=== PATIENT | female | born 1990 | race Caucasian/White ===

== ENCOUNTER → 2022-11-26 16:22 | Outpatient (CLI) | payer OTHER, SELFPAY ==
--- NOTE | 2022-11-26 16:24 | DI.US.S_ITS ---
PROCEDURE: US OB >= 14 WEEKS FETUS INDICATIONS: 20 WEEK ANATOMY SCAN OUTSIDE/PRIOR DATING DATA: Last menstrual period (LMP): 07/06/22. LMP-based estimated date of delivery (IVIS): 04/12/23. First dating scan (date and location): Unavailable. Estimated date of delivery (IVIS) from first dating scan: Unavailable. The calculations are made using the clinical IVIS of 04/12/23. TECHNIQUE: Real-time scanning was performed of the fetus, with image documentation and biometric measurements. Endovaginal scanning: Not performed COMPARISON: None. FINDINGS: General: A single living intrauterine gestation is present. Presentation: Vertex. Placenta: Placental position is anterior , without previa. Amniotic fluid index: 16.0 cm, normal range is 5-24 cm. Single deepest vertical pocket is 5.2 cm. heart rate: 155 beats per minute. Maternal cervical canal: Closed and 4.2 cm long. Normal lower limit is 2.5 cm. biometrics: Biparietal diameter: 5.2 cm, 21 weeks 5 days Head circumference: 20.0 cm, 22 weeks 0 days Abdominal circumference: 16.4 cm, 21 weeks 3 days Femur length: 3.4 cm, 20 weeks 5 days Clinically estimated gestational age: 20 weeks 3 days Composite gestational age from present scan: 21 weeks 3 days Estimated weight and percentile: 408 g, 86th percentile Anatomic survey: Neuro: Ventricles are non-dilated at less than 10 mm. Cisterna magna is normal at 3-11 mm. Cerebellum is normal in size and morphology. Nuchal skin fold: Normal at less than 6 mm between 14-21 weeks gestational age. Face: Nose and lips, facial profile are normal. Spine: No evidence for spina bifida. Heart: 4-chambered heart is present, with normal ventricular outflow tracts. Diaphragm: Diaphragm is intact. Stomach: Left-sided stomach is present. Kidneys: Borderline right renal pelviectasis. Right renal pelvis measures 5 mm. The left measures 4 mm. Cord: 3-vessel cord has orthotopic insertion. Bladder: Normal in size. Extremities: All 4 extremities identified. IMPRESSION: 1. Single living intrauterine with gestational age by today's measurements 1 week ahead of the clinically assigned gestational age. 2. Borderline right renal pelviectasis. Consider follow-up in early 3rd trimester. 3. Otherwise normal anatomy. 4. Closed cervix and normal amniotic fluid volume. 5. Anterior placenta. We strive to produce accurate, complete, and clear reports of imaging services. To assist us in improving patient care, this report was composed using standard report templates and voice recognition software. Therefore, it may contain abnormal punctuation, insertions and/or omissions. Occasional wrong-word or sound-alike substitutions may occur. Though we review the report and make efforts to correct it, we do recommend that the report be read carefully in proper context to recognize any text inaccuracies. Dictated by: Blank Ordoñez M.D. on 11/26/2022 at 21:43 Approved by: Blank Ordoñez M.D. on 11/26/2022 at 21:51
== END ==
PROVIDERS: Referring Provider Nurse Practitioner Obstetrics & Gynecology; Visit Provider Nurse Practitioner Obstetrics & Gynecology
DX: Z34.02 Encounter for supervision of normal first pregnancy, second trimester (principal); Z3A.20 20 weeks gestation of pregnancy
CPT/HCPCS: 76811

== ENCOUNTER → 2023-02-11 15:15 | Outpatient (CLI) | payer OTHER, SELFPAY ==
--- NOTE | 2023-02-11 | DI.US.S_ITS ---
PROCEDURE: US OB FOLLOW UP INDICATIONS: FOLLOW UP FROM 20WK ANATOMY SCAN OUTSIDE/PRIOR DATING DATA: Last menstrual period (LMP): 07/06/2022. LMP-based estimated date of delivery (IVIS): 04/12/2023. The calculations are made using the clinical IVIS of 04/12/2023 TECHNIQUE: Real-time scanning was performed of the fetus, with image documentation. Endovaginal scanning: Not performed COMPARISON: None. FINDINGS: A single living intrauterine gestation is present. Presentation: Vertex. Placenta: Placental position is anterior, without previa. Amniotic fluid index: 10.8 cm, normal range is 5-24 cm. Single deepest vertical pocket is 4.3 cm. heart rate: 153 beats per minute. Maternal cervical canal: 2.8 cm long. Normal lower limit is 2.5 cm. Clinically estimated gestational age: 31 weeks 3 days Right renal pelvis is dilated, measuring 9 mm. IMPRESSION: Single living intrauterine at 31 weeks 3 days, IVIS of 04/12/2023. Right renal pelvis is dilated, measuring 9 mm. An obstructive etiology is not excluded. Dictated by: Suleman Pastor M.D. on 02/11/2023 at 16:53 Approved by: Suleman Pastor M.D. on 02/11/2023 at 16:54
== END ==
PROVIDERS: Referring Provider Advanced Practice Midwife; Visit Provider Advanced Practice Midwife
DX: O35.8XX0 Maternal care for other (suspected) fetal abnormality and damage, not applicable or unspecified (principal); Z3A.31 31 weeks gestation of pregnancy
CPT/HCPCS: 76816

== ENCOUNTER 2023-04-14 12:48 | Inpatient (IN) | payer OTHER, BC, SELFPAY ==
[2023-04-14] MEDS: LACTATED RINGERS 1,000 ML 100 ML IV (13:45)
--- NOTE | 2023-04-14 14:19 | P.HPOB_ITS ---
OB HPI Date/Time Date of admission: 04/14/23 Date Patient Seen: 04/14/23 Time Patient Seen: 13:30 History of Present Condition Chief complaint: Augmentation r/to PROM : 1 Para: 0 Estimated Date of Delivery: 04/12/23 Estimated Gestational Age (weeks): 40w2d Narrative: Lyn Jerez is a 32 year old female, @ 40 weeks 2 days based on sure LMP concordant with 6w4d US presenting for augmentation of labor related to PROM, clear fluid, 04/13/23 @ 2240. Has continued to leak clear fluid since ROM and has been wearing a depends. movement normal. Denies contractions, vaginal bleeding, or s/sx of infection. Interested in low-intervention vaginal . FOB at bedside providing support. Uncomplicated care followed by CNMs. notable for: anemia (taking ferrous sulfate PO) Indications Other reason(s) for admission: Augmentation for PROM x 15hr History of Present care: good care, initiated at week # (6w4d), number of visits and pounds weight gain (43) Dating criteria: LMP confirmed by 1st trimester US Ultrasounds: abnormal US findings and other (normal 3rd trimester US) Abnormal ultrasound findings: 20w2d US showing borderline right renal pelviectasis with otherwise normal anatomy. Repeat 3rd trimester US showed resolved renal physiology. Obstetrical complications: other (anemia) Medical complications: none Preadmission Labs Blood type: B (+) positive -: Antibody screen: negative, GBS status: negative, HBsAG: negative, HIV: negative and RPR/VDLR: negative -: Chlamydia screen: not detected and Gonorrhea screen: not detected -: Rubella: immune and Varicella: immune HCT: 31.4 HCAB: negative PAP: Normal Cell-free DNA: negative Urine: normal 1 hr GTT: 85 Prior (ies) History: none Evaluation Evaluation Baseline heart rate: 145 Variability: Moderate (11-25) monitor accelerations: Present Monitor Decelerations: Absent Contraction Frequency (minutes): 0 Status: Category l Comments: clear SROM on 04/13 @ 2240. Continuous leaking of fluid since. SVE deferred due to PROM [facility] Medical History (Updated 04/14/23 @ 17:44 by Jesika Bonilla CNM, [employer]) Migraines Fep-wlkxea-qujjg-rubella (10/21/03) Surgical History (Updated 04/14/23 @ 17:06 by Jesika Bonilla CNM, ODIN) H/O foot surgery Family History (Updated 04/14/23 @ 17:12 by Jesika Bonilla CNM, ODIN) Other Cancer Social History (Updated 04/14/23 @ 17:10 by Jesika Bonilla CNM, ODIN) marital status: number of children: 0 household members: spouse lives independently: Yes caregiver/support person: No housing: house pets and animals: Yes education level: college occupational status: employed do you feel safe at home: Yes Smoking Status: Never smoker well-balanced diet: daily or most days Meds Home Medications and Allergies Home Medications Medication Instructions Recorded Confirmed Type ferrous sulfate 325 mg (65 mg 325 mg PO BID 04/14/23 04/14/23 History iron) tablet prenat.vits,torsten,oep-ckaa-oxsxs tab 04/14/23 History Allergies Allergy/AdvReac Type Severity Reaction Status Date / Time Latex, Natural Rubber AdvReac Mild Irritable Verified 04/14/23 16:05 Review of Systems Review of Systems ROS: Yes All systems reviewed with the patient and are negative except as otherwise documented OB Exam Vital signs Blood Pressure: 116/74 Pulse Rate: 75 Temperature: 36.4 F Resp Effort & Inspection: normal respiratory effort and able to speak in complete sentences Auscultation: clear to auscultation bilaterally Cardio Rate: regular rate Rhythm: regular rhythm Presentation: vertex (LOT by bedside ultrasound) Objective Labs 04/14/23 13:45 Assessment and Plan Assessment and Plan Assessment and Plan narrative: A: 32yo @ 40w2d Term Nullipara Not in labor PROM x 15hr GBS negative: Antibiotic prophylaxis not indicated Mild anemia FHR Cat 1 Rh positive P: Admit with routine labs/orders Reviewed options for augmentation of labor. After discussion, initiate pitocin augmentation per protocol Continuous monitoring while on pitocin. Exam not performed due to PROM Discussed careful AMTSL r/to anemia of . Provide labor support as desired. Reassess in 4-6hr or sooner prn.
[2023-04-14 14:38] LABS: Add Manual Diff / Slide Review NO; Basophils Absolute Auto 0 /uL (0-100); Basophils Percent Auto 0.2 % (0-2); Eosinophils Absolute Auto 0 /uL (0-450); Eosinophils Percent Auto 0.2 % (2-4); Hematocrit 29.1 % (36-46); Hemoglobin 9.8 g/dL (12.0-16.0); Lymphocytes Absolute Auto 1600 /uL (1100-4500); Lymphocytes Percent Auto 13.3 % (25-40); Mean Corpuscular HGB Conc 33.6 % (30-36); Mean Corpuscular Hemoglobin 28.9 PG (26-34); Mean Corpuscular Volume 85.9 fL (80-100); Monocytes Absolute Auto 600 /uL (0-900); Monocytes Percent Auto 5.2 % (3-14); Neutrophils Absolute Auto 9500 /uL (1500-7000); Neutrophils Percent Auto 81.1 % (50-75); Platelet Count 266 X10^3/uL (150-400); Red Blood Cell Count 3.39 X10^6/uL (4.0-5.2); Red Cell Distribution Width 15.4 % (11.6-14.8); White Blood Cell Count 11.8 X10^3/uL (4.5-11.0)
[2023-04-14] MEDS: OXYTOCIN PREMIX 30 UNIT/500 ML PLAST..BAG IV (14:45)
[2023-04-14 16:20] VITALS: BP 116/74; PULSE 75; TEMP 2.4; TEMP 36.4
--- NOTE | 2023-04-14 17:23 | PM.OBPNLAB ---
Date/Time Date Patient Seen: 04/14/23 Time Patient Seen: 17:20 Pain Control Pain control: tolerating well Comments: Lyn is on a yoga ball swaying and watching tv with her partner by her side. Feels mild contractions and rate it 3/10 pain. Able to talk and laugh through contractions. VS: BP- 120/70 mmHg HR- 67 bpm T- 36.7c temporal Pelvic Exam Amniotic membrane status: Ruptured (x19hr) Comments: Deferred/ not indicated Contractions Contractions on admission: none Monitor mode: External Pitocin rate (mU/min): 3 Contraction frequency (min): 3 (-4) Contraction duration (min): 1 Contraction pattern: Regular Contraction intensity: Mild Status status: Category l Heart Rate Baseline: 135 Monitor Accelerations: Present Monitor Decelerations: Absent Monitor Variability: Moderate Assessment and Plan Assessment: other (Augmentation ongoing) Plan: continuous present management Comments: A: Term nullip Early labor SROM x 19hr without s/sx of infection FHR Cat 1 P: Continue pitocin titration per protocol Continuous monitoring Provide labor support as needed Reassess in 4-6hr or sooner prn
--- NOTE | 2023-04-14 22:46 | P.PNOB_ITS ---
Date/Time Date Patient Seen: 04/14/23 Time Patient Seen: 22:15 Pain Control Pain control: tolerating well Comments: Lyn is breathing and concentrating through moderate contractions every 3-4 minutes. Describes contractions as 'like heavy period'. Is considering trying nitrous oxide for some pain relief soon. Ate dinner earlier and now has water by bedside. Had mild headache that started right before she ate dinner and has gone away s nitesh eating. Denies any current MCDONALD, visual changes, RUQ pain. Continues to have clear fluid leaking. Laying in bed on her R side with FOB by her side providing support. Pelvic Exam Amniotic membrane status: Ruptured (x23.5hr) Comments: Deferred VS: -BP 114/76 mmHg -HR 65 bpm -T 6.2c temporal Contractions Monitor mode: External Pitocin rate (mU/min): 6 Contraction frequency (min): 3 (-4) Contraction duration (min): 1 Contraction pattern: Regular Contraction intensity: Moderate Status status: Category ll Heart Rate Baseline: 135 Monitor Accelerations: Present Monitor Decelerations: Late Monitor Variability: Moderate Assessment and Plan Assessment: other (augmentation ongoing) Plan: continuous present management Comments: A: 32yo, @ 40w2d Term Nullip Early labor SROM x 23.5hr, no s/sx of infection FHR Cat 2 reassuring P: Counseled on nitrous oxide. Offered non-pharmacological options for pain relief/labor support Advised to try to get rest in-between contractions Advised to let CNM or nurses know she she has any headaches again. Continue titrating pitocin per protocol Continuous monitoring Reassess in 4hr or sooner, prn
--- NOTE | 2023-04-15 00:39 | PM.OBPNLAB ---
Date/Time Date Patient Seen: 04/15/23 Time Patient Seen: 00:39 Pain Control Pain control: other Comments: Lyn is in bed using nitrous oxide for pain management. Contractions are every 3 minutes and are have slightly increased in intensity. Is interested in a cervical exam. VS: BP- 113/64 HR- 66 T- 36.2c temporal Pelvic Exam Dilation (cm): 2 Effacement (%): 90 station: -1 Amniotic membrane status: Ruptured (x25hr) Comments: soft, mid-posterior. Contractions Monitor mode: External Pitocin rate (mU/min): 7 Contraction frequency (min): 3 Contraction duration (min): 1 Contraction pattern: Regular Contraction intensity: Moderate Status status: Category l Heart Rate Baseline: 140 Monitor Accelerations: Present Monitor Decelerations: Absent Monitor Variability: Moderate Assessment and Plan Assessment: other (augmentation ongoing) Plan: continuous present management Comments: A: 32yo, @ 40w3d Term Nullip Early labor SROM x 25hr without s/sx of infection FHR Cat 1 P: Cervical exam performed. Offered therapeutic rest or alternative ways to support early labor. Lyn decided to proceed with therapeutic rest. Morphine/Vistaril ordered for therapeutic rest. Continue pitocin titration per protocol Provide labor support as needed Continuous monitoring Reassess in 4hr or sooner, prn
[2023-04-15] MEDS: hydrOXYzine 50 MG/ML INJ IM (01:03)
[2023-04-15] MEDS: MORPHINE 10 MG/ML INJ IM (01:03)
--- NOTE | 2023-04-15 05:48 | PM.OBPNLAB ---
Date/Time Date Patient Seen: 04/15/23 Time Patient Seen: 05:48 Pain Control Pain control: narcotic analgesia (morphine/Vistaril ) Comments: Lyn is sleeping in between contractions in her bed with FOB at her side. Contractions have continued to be 2-4 min apart and moderate in intensity. Would like to continue to rest in between contractions until breakfast. VS: BP- 118/62 HR- 63 T- 36.3c temporal Pelvic Exam Dilation (cm): 2 Effacement (%): 90 station: -1 Amniotic membrane status: Ruptured (x31hr) Comments: exam not repeated Contractions Monitor mode: External Pitocin rate (mU/min): 7 Contraction frequency (min): 2 (-4) Contraction duration (min): 1 Contraction pattern: Regular Contraction intensity: Moderate Status status: Category l Heart Rate Baseline: 135 Monitor Accelerations: Present Monitor Decelerations: Absent Monitor Variability: Moderate Assessment and Plan Assessment: other (early labor) Plan: continuous present management Comments: A: 32yo @ 42w3d Term Nullip Early labor SROM x 31hr, no signs of infection FHR Cat 1 P: Recommended ordering breakfast. Discussed recommendation for frequent maternal movements/position changes. Continue pitocin titration per protocol. Continuous monitoring. Continue to provide labor support as needed. Reassess in 2-3hr when she is more awake or sooner prn.
[2023-04-15] MEDS: LACTATED RINGERS 1,000 ML 100 ML IV (08:21)
--- NOTE | 2023-04-15 09:07 | PM.OBPNLAB ---
Date/Time Date Patient Seen: 04/15/23 Time Patient Seen: 09:30 Pain Control Pain control: tolerating well Comments: Lyn is sitting up in bed eating breakfast with FOB and mom at bedside. Is feeling more restful. Contraction intensity has decreased since sitting up. VS: BP- 125/80 HR- 65 T- 98.6f temporal, recheck 99.2f axillary Pelvic Exam Dilation (cm): 2.5 Effacement (%): 95 station: 0 Amniotic membrane status: Ruptured (x35hr) Comments: Soft, anterior. Bishops score: 10 Clear/bloody discharge noted. Contractions Monitor mode: External Pitocin rate (mU/min): 7 Contraction frequency (min): 2 (2-3) Contraction duration (min): 1 Contraction pattern: Regular Contraction intensity: Mild Status status: Category l Heart Rate Baseline: 135 Monitor Accelerations: Present Monitor Decelerations: Absent Monitor Variability: Moderate Assessment and Plan Assessment: other (early labor) Plan: continuous present management Comments: A: Term Nullip Early labor SROM x 35hr (afibrile but increasing) FHR Cat 1 P: Suggested to get out of bed, complete morning ADLs, and walk around the unit/hospital or get in tub Titrate pitocin per protocol Continuous monitoring Monitor for signs of IAI Provide labor support as needed Reassess in 4hr or sooner prn
--- NOTE | 2023-04-15 12:11 | PM.OBPNLAB ---
Date/Time Date Patient Seen: 04/15/23 Time Patient Seen: 13:00 Pain Control Pain control: tolerating well Comments: Lyn on birthing ball with FOB at side for labor support. Contractions are moderate and every 2-4min. VS: -125/80 -65 bpm -99 F, temporal Pelvic Exam Dilation (cm): 3 Effacement (%): 95 station: 0 Amniotic membrane status: Ruptured (x38hr) Contractions Monitor mode: External Pitocin rate (mU/min): 13 Contraction frequency (min): 3 (2-4) Contraction duration (min): 1 Contraction pattern: Regular Contraction intensity: Moderate Status status: Category l Heart Rate Baseline: 140 Monitor Accelerations: Present Monitor Decelerations: Absent Monitor Variability: Moderate Assessment and Plan Comments: Consulted OB back-up of pt's status at approx 36 hours post ROM. Recommendation to consider this afternoon if not in active labor. Epidural requested and anesthesia called to bedside. Consider IUPC after epidural placement to monitor contraction strength.
--- NOTE | 2023-04-15 14:50 | PM.AN.REGBLK ---
Regional Block Pre-procedure Labs: Hct 29.1 % (36-46) L 04/14/23 13:45 Plt Count 266 X10^3/uL (150-400) 04/14/23 13:45 Medications: Current Medications Generic Name Dose Route Start Last Admin Trade Name Freq PRN Reason Stop Dose Admin Acetaminophen 650 mg 04/14/23 14:15 Acetaminophen 325 Mg Tablet PO Q6H PRN Fever/Mild Pain (1-3) Calcium Carbonate 1,000 mg 04/14/23 14:15 Calcium Carbonate 500 Mg Tab PO Q4HR PRN Dyspepsia Carboprost Tromethamine 250 mcg 04/14/23 14:15 Carboprost 250 Mcg/Ml Ampul IM Q90M PRN Bleeding Diphenhydramine HCl 25 mg 04/15/23 14:48 Diphenhydramine 50 Mg/Ml Vial IV Q10M PRN Pruritis Fentanyl 100 mcg 04/14/23 14:15 Fentanyl 100 Mcg/2 Ml Inj IV Q1H PRN Pain, Severe (7-10) Oxytocin/Lactated Ringer's 30 unit in 500 mls @ 200 mls/hr 04/14/23 14:15 Oxytocin Premix IV CONT PRN Bleeding Protocol Tranexamic Acid 1,000 mg/ 100 mls @ 200 mls/hr 04/14/23 14:15 Sodium Chloride IV NOW PRN Bleeding Oxytocin/Lactated Ringer's 30 unit in 500 mls @ 2 mls/hr 04/14/23 14:15 04/14/23 14:45 Oxytocin Premix IV 2 milliunit/min TITRATE NGOZI 2 mls/hr Administration Protocol 2 MILLIUNIT/MIN Lactated Ringer's 1,000 mls @ 100 mls/hr 04/14/23 14:15 04/15/23 08:21 Lactated Ringers IV 100 mls/hr CONT NGOZI Administration FENT 2MCG/ML BUPIV 0.125% EPI 200 mcg in 100 mls @ 6 mls/hr 04/15/23 15:00 Fentanyl/Bupiv/Ns 2mcg/Ml - 0.125% EPIDURAL CONT NGOZI Lidocaine HCl 20 ml 04/14/23 14:15 Lidocaine 1% 20 Ml INJ INTRA-OP PRN Post Delivery Methylergonovine Maleate 0.2 mg 04/14/23 14:15 Methylergonovine 0.2 Mg Tablet PO Q6HR PRN Heavy Bleeding Methylergonovine Maleate 0.2 mg 04/14/23 14:15 Methylergonovine 0.2 Mg/Ml Vial IM NOW PRN Bleeding Misoprostol 800 mcg 04/14/23 14:15 Misoprostol 200 Mcg Tablet TN NOW PRN Bleeding Misoprostol 400 mcg 04/14/23 14:15 Misoprostol 200 Mcg Tablet SL NOW PRN Bleeding Morphine Sulfate 10 mg 04/15/23 00:36 04/15/23 01:03 Morphine 10 Mg/Ml Inj IM 10 mg Q4HR PRN Administration Pain, Severe (7-10) Nalbuphine HCl 2.5 mg 04/15/23 14:48 Nalbuphine 20 Mg/Ml Ampul IV Q10M PRN Pruritis Naloxone HCl 0.2 mg 04/14/23 14:15 Naloxone 0.4 Mg/Ml Vial IV Q2MIN PRN Opiate Reversal Ondansetron HCl 4 mg 04/14/23 14:15 Ondansetron 4 Mg/2 Ml Inj IV Q4HR PRN Nausea And Vomiting Oxytocin 10 unit 04/14/23 14:15 Oxytocin 10 Unit/Ml Vial IM NOW PRN Bleeding Allergies: Allergies Allergy/AdvReac Type Severity Reaction Status Date / Time Latex, Natural Rubber AdvReac Mild Irritable Verified 04/14/23 16:05 Procedure Insertion date: 04/15/23 Insertion time: 14:23 Prep/Local: betadine x3 (chlorhexadine) and 1% lidocaine Interspace: l3-l4 Patient position: sitting Needle: 17 gauge Tuohy Loss of resistance with: air JENNYFER at (cm): 6 Catheter placed at SKIN (cm): 12 Sensory level: t6 Insertion: No CSF, No Blood, No Paresthesia with insertion, No Paresthesia with injection and No Test dose reaction Initial Medications TEST DOSE time: 14:24 BOLUS DOSE time: 14:35 BOLUS DOSE (mL): 5 BOLUS DOSE med: 0.125% bupivacaine with fentanyl 10 mcg/mL Infusion INFUSION: 0.0625% bupivacaine and with fentanyl 2 mcg/mL Initial rate (mL/hr): 8 Post-procedure Anesthesia date START: 04/15/23 Anesthesia time START: 14:16 Anesthesia date END: 04/15/23 Anesthesia time END: 22:00
--- NOTE | 2023-04-15 14:58 | PM.AN.REGBLK ---
Regional Block Pre-procedure PMH/ROS narrative: Negative PMH Exam narrative: Exam negative healthy young woman ASA Class: II Labs: Hct 29.1 % (36-46) L 04/14/23 13:45 Plt Count 266 X10^3/uL (150-400) 04/14/23 13:45 Medications: Current Medications Generic Name Dose Route Start Last Admin Trade Name Freq PRN Reason Stop Dose Admin Acetaminophen 650 mg 04/14/23 14:15 Acetaminophen 325 Mg Tablet PO Q6H PRN Fever/Mild Pain (1-3) Calcium Carbonate 1,000 mg 04/14/23 14:15 Calcium Carbonate 500 Mg Tab PO Q4HR PRN Dyspepsia Carboprost Tromethamine 250 mcg 04/14/23 14:15 Carboprost 250 Mcg/Ml Ampul IM Q90M PRN Bleeding Diphenhydramine HCl 25 mg 04/15/23 14:48 Diphenhydramine 50 Mg/Ml Vial IV Q10M PRN Pruritis Fentanyl 100 mcg 04/14/23 14:15 Fentanyl 100 Mcg/2 Ml Inj IV Q1H PRN Pain, Severe (7-10) Oxytocin/Lactated Ringer's 30 unit in 500 mls @ 200 mls/hr 04/14/23 14:15 Oxytocin Premix IV CONT PRN Bleeding Protocol Tranexamic Acid 1,000 mg/ 100 mls @ 200 mls/hr 04/14/23 14:15 Sodium Chloride IV NOW PRN Bleeding Oxytocin/Lactated Ringer's 30 unit in 500 mls @ 2 mls/hr 04/14/23 14:15 04/14/23 14:45 Oxytocin Premix IV 2 milliunit/min TITRATE NGOZI 2 mls/hr Administration Protocol 2 MILLIUNIT/MIN Lactated Ringer's 1,000 mls @ 100 mls/hr 04/14/23 14:15 04/15/23 08:21 Lactated Ringers IV 100 mls/hr CONT NGOZI Administration FENT 2MCG/ML BUPIV 0.125% EPI 200 mcg in 100 mls @ 6 mls/hr 04/15/23 15:00 Fentanyl/Bupiv/Ns 2mcg/Ml - 0.125% EPIDURAL CONT NGOZI Lidocaine HCl 20 ml 04/14/23 14:15 Lidocaine 1% 20 Ml INJ INTRA-OP PRN Post Delivery Methylergonovine Maleate 0.2 mg 04/14/23 14:15 Methylergonovine 0.2 Mg Tablet PO Q6HR PRN Heavy Bleeding Methylergonovine Maleate 0.2 mg 04/14/23 14:15 Methylergonovine 0.2 Mg/Ml Vial IM NOW PRN Bleeding Misoprostol 800 mcg 04/14/23 14:15 Misoprostol 200 Mcg Tablet W[place] NOW PRN Bleeding Misoprostol 400 mcg 04/14/23 14:15 Misoprostol 200 Mcg Tablet SL NOW PRN Bleeding Morphine Sulfate 10 mg 04/15/23 00:36 04/15/23 01:03 Morphine 10 Mg/Ml Inj IM 10 mg Q4HR PRN Administration Pain, Severe (7-10) Nalbuphine HCl 2.5 mg 04/15/23 14:48 Nalbuphine 20 Mg/Ml Ampul IV Q10M PRN Pruritis Naloxone HCl 0.2 mg 04/14/23 14:15 Naloxone 0.4 Mg/Ml Vial IV Q2MIN PRN Opiate Reversal Ondansetron HCl 4 mg 04/14/23 14:15 Ondansetron 4 Mg/2 Ml Inj IV Q4HR PRN Nausea And Vomiting Oxytocin 10 unit 04/14/23 14:15 Oxytocin 10 Unit/Ml Vial IM NOW PRN Bleeding Allergies: Allergies Allergy/AdvReac Type Severity Reaction Status Date / Time Latex, Natural Rubber AdvReac Mild Irritable Verified 04/14/23 16:05 --: Called to Labor room. Pt consented at 1345. Sitting up chloroprep and drape @ 1359. 1% xylo L3-4 unable to access space. L2-3 1 % Xylo Hopkins was in epidural space but unable to thread catheter. Needle and cathetter removed. Called for another provider to attempt placement. Procedure Insertion date: 04/15/23 Insertion time: 14:04 Prep/Local: 1% lidocaine (chloroprep) Interspace: L3-4, L2-3 Patient position: sitting Needle: 18 gauge Nathanael Loss of resistance with: saline JENNYFER at (cm): 8 Catheter placed at SKIN (cm): 0 Catheter in SPACE (cm): 0 Post-procedure Anesthesia date START: 04/15/23
--- NOTE | 2023-04-15 17:20 | PM.OBPNLAB ---
Date/Time Date Patient Seen: 04/15/23 Time Patient Seen: 17:00 Pain Control Pain control: epidural Pelvic Exam Dilation (cm): 4.5 Effacement (%): 95 station: +1 Amniotic membrane status: Ruptured (Prolonged) Contractions Monitor mode: External Pitocin rate (mU/min): 17 Contraction frequency (min): 2 (2-3) Contraction duration (min): 60 Contraction pattern: Regular Contraction intensity: Moderate Status status: Category l Heart Rate Baseline: 135 Monitor Accelerations: Present Monitor Decelerations: Absent Monitor Variability: Moderate Assessment and Plan Assessment: other Comments: at 40w3d by LMP GBS neg Prolonged ROM Failed induction of labor FHR Cat 1 Turn off pitocin. Discuss recommendation for based on prolonged ROM, inadequate cervical change and low MVUs. Plan to introduce Dr. Carrillo for consent/conversation about delivery.
--- NOTE | 2023-04-15 17:30 | PM.OBPNLAB ---
Date/Time Date Patient Seen: 04/15/23 Time Patient Seen: 17:30 Pain Control Pain control: epidural Pelvic Exam Dilation (cm): 5 Effacement (%): 95 station: 0 Amniotic membrane status: Ruptured (x38hr) Contractions Monitor mode: External Contraction frequency (min): 2 (2-3) Contraction pattern: Regular Contraction intensity: Moderate Status status: Category l Assessment and Plan Assessment: other Plan: Comments: 32yo at 40+3wks with PROM on 04/13 at 2240, now over 24hrs of pitocin augmentation with minimal progression. She is not in active labor yet, thus recommended primary due to failed induction of labor. Discussed with pt, and she agrees to proceed. -2g Ancef, 500mg azithro for ppx -PPH risk moderate due to prolonged oxytocin and anemia -VTE risk low, SCDs for ppx -will proceed to OR for delivery once OR team is ready, given category I tracing consent It was explained to the patient that a section is a surgery to deliver the baby through an incision in the abdominal wall and uterus.? All procedures can be associated with risk and unforeseen complications, which can be immediate or delayed.? Risks and complications of section include, but are not limited to:? infection of the uterus, pelvic organs, or skin; inadvertent injury to internal organs such as the bowel, bladder, or possibly even the baby; blood loss, transfusion, and/or life-threatening hemorrhage requiring hysterectomy; blood clots in the legs, pelvic organs, or lungs; adverse reaction to medications or anesthesia during surgery; development of placenta accreta spectrum in a subsequent ; and increased risk of section in a subsequent .
--- NOTE | 2023-04-15 18:09 | PM.OBPNLAB ---
Date/Time Date Patient Seen: 04/15/23 Time Patient Seen: 15:50 Pain Control Pain control: epidural Comments: Lyn is on yoga ball with FOB and mom at side providing labor support. Contractions continue to be moderate to strong, every 2-3 min. VS: -BP 116/65 -HR 75 bpm -T 36.6c temporal Pelvic Exam Dilation (cm): 4.5 Effacement (%): 95 station: +1 Amniotic membrane status: Ruptured (x40hr) Contractions Monitor mode: External Pitocin rate (mU/min): 14 Contraction frequency (min): 2 (2-3) Contraction duration (min): 1 Contraction pattern: Regular Contraction intensity: Moderate Status status: Category l Heart Rate Baseline: 135 Monitor Accelerations: Present Monitor Decelerations: Absent Monitor Variability: Moderate Assessment and Plan Assessment: other (early labor) Plan: continuous present management Comments: A: Term nullip Prolonged Early labor, failed induction SROM x 40hr, continues to be high-afebrile , no s/sx of infection. FHR Cat I P: Discuss slow cervical change with continued apparent strong contractions. IUPC inserted after discussion/consent. Continue pitocin augmentation per protocol. Consult with Dr. Carrillo regarding recommendations for plan of care. Plan for her to talk with patient when able about recommendation.
--- NOTE | 2023-04-15 22:00 | P.PCN_ITS ---
Procedures Date/Time Date of procedure: 04/15/23 Time of procedure: 22:00 General Procedure description: White Metal Caster Documentation I assisted the OB salesperson pianos and organs in the section for this patient. My responsibilities included retracting and suctioning, providing fundal pressure during delivery and following with suture during closure. Please see the OB's note for details of the surgery.
[2023-04-15] MEDS: CEFAZOLIN 2 GM/100 ML PREMIX 100 ML IV (22:01)
[2023-04-15] MEDS: TRANEXAMIC ACID 1,000 MG in SODIUM CHLORIDE 0.9% 100 ML 200 MG IV (22:10)
--- NOTE | 2023-04-15 22:19 | SUR.OPER ---
Supine on Padded OR bed, head on pillow, safety belt at thigh, arms secured on padded arm boards at <90 degrees abduction. Bump under right buttock. Legs uncrossed with pillow under knees, gel pad to heels, tape over blanket to lower legs.
[2023-04-15] MEDS: AZITHROMYCIN 500 MG in DEXTROSE 5% IN WATER 250 ML 250 MG IV (22:28)
--- NOTE | 2023-04-15 22:37 | SUR.OPER ---
viable baby boy born at 221, FHT prior to incision 155, placenta delivered at 2215, cord blood and placenta taken to OB per OB RN, 9/10
--- NOTE | 2023-04-15 22:53 | PM.OBCS.1 ---
Operative Date/Time/Diagnoses Date of procedure: 04/15/23 Time of procedure: 22:00 Pre-op diagnosis: 1. Butcher intrauterine gestation at 40+3 weeks 2. Failed induction of labor 3. Prelabor rupture of membranes 4. Anemia of Post-op diagnosis: same Procedure & Clinicians Procedure: Primary low transverse section Same procedure as scheduled: Yes Indications: 32yo at 40+3 weeks EGA w/ PNC c/b anemia, who was admitted on 04/14 for PROM. After >24 hours of pitocin augmentation and being ruptured for approximately 47 hours, she was counseled and consented for PLTCS for failed induction of labor. Surgeon: Kirti Carrillo Click Yes if Unassisted: No Virtualization Engineer: Jesika Bonilla Reason for Virtualization Engineer: Virtualization Engineer was necessary for timely, efficient, and safe completion of the procedure. Anesthesia Type: Epidural Operative Notes Findings: Normal-appearing uterus and bilateral fallopian tubes and ovaries. Clear fluid noted with delivery. Delivery productive of a viable male infant in ROP presentation with APGARS 9/10 and weighing 3921g. Closure Type: primary Intraoperative meds administered: Tranexamic acid Estimated Blood Loss (mL): 700 Blood products transfused: none Procedure in detail: The risks, benefits, indications and alternatives of the procedure were reviewed with the patient and informed consent was obtained. The patient was taken to the operating room where spinal/epidural anesthesia was obtained without difficulty and was found to be adequate. Sequential compression devices were placed bilaterally for VTE prophylaxis. She was then prepped and draped in the normal, sterile fashion in the dorsal supine position with a leftward tilt. She received 2g Ancef for surgical prophylaxis. A Pfannenstiel skin incision was then made with the scalpel and carried through to the underlying layer of fascia. The fascia was digitally. The rectus muscles were then at the midline. The peritoneum was identified, and entered digitally. The peritoneal incision was then extended horizontally, superiorly and inferiorly, with good visualization of the bladder. The bladder blade was then inserted. The lower uterine segment was incised in a transverse fashion with the scalpel. The uterine incision was then extended manually in a cephalad/caudad direction. The bladder blade was then removed. The ?s head delivered atraumatically through the hysterotomy without difficulty, followed by the body.? The cord was doubly clamped and cut after a 60sec delay with the handed off to the waiting pediatrics team. The placenta was then removed spontaneously with gentle traction on the umbilical cord. The uterus was then left in-situ and cleared of all clots and debris. The uterine incision was repaired with 0-vicryl in a running, locked fashion. A second layer using 0-monocryl was then used to imbricate the hysterotomy with excellent hemostasis achieved. The paracolic gutters were cleared of all clot and debris. The fascia was reapproximated with 0-vicryl in a running fashion. The subcutaneous layer was closed with 3-0 vicryl in simple, interrupted sutures. The skin was closed with 4-0 monocryl in a subcuticular fashion. The incision was then dressed with steri-strips and a pressure dressing was applied. At the completion of the case, a Crede maneuver was performed with good uterine tone and minimal vaginal bleeding noted.? The patient tolerated the procedure well. Sponge, lap and needle counts were correct x3. The patient was taken to the recovery room in stable condition. The patient is a candidate for a trial of labor after . Complications: none Post-operative Condition: stable Disposition: PACU Aftercare: routine postop
[2023-04-15 22:54] VITALS: BP 121/70; PULSE 90; RESP 15; TEMP 36.6; O2SAT 91
[2023-04-15] MEDS: ONDANSETRON 4 MG/2 ML INJ IV (22:57)
[2023-04-15 22:59] VITALS: BP 128/58; PULSE 84; RESP 18; O2SAT 94
[2023-04-15 23:05] VITALS: BP 113/61; PULSE 91; RESP 12; O2SAT 92
[2023-04-15 23:09] VITALS: BP 123/67; PULSE 86; RESP 17; TEMP 36.3; O2SAT 94
[2023-04-16] MEDS: ACETAMINOPHEN 325 MG TABLET 650 MG PO ×4 (02:26→22:31)
[2023-04-16] MEDS: KETOROLAC 30 MG/ML VIAL IV ×4 (06:32→17:18)
[2023-04-16 09:43] LABS: Add Manual Diff / Slide Review NO; Basophils Absolute Auto 0 /uL (0-100); Basophils Percent Auto 0.1 % (0-2); Eosinophils Absolute Auto 0 /uL (0-450); Eosinophils Percent Auto 0.1 % (2-4); Hematocrit 26.4 % (36-46); Hemoglobin 9.1 g/dL (12.0-16.0); Lymphocytes Absolute Auto 1200 /uL (1100-4500); Lymphocytes Percent Auto 7.9 % (25-40); Mean Corpuscular HGB Conc 34.3 % (30-36); Mean Corpuscular Hemoglobin 29.3 PG (26-34); Mean Corpuscular Volume 85.3 fL (80-100); Monocytes Absolute Auto 600 /uL (0-900); Neutrophils Absolute Auto 13600 /uL (1500-7000); Neutrophils Percent Auto 87.9 % (50-75); Platelet Count 235 X10^3/uL (150-400); White Blood Cell Count 15.4 X10^3/uL (4.5-11.0)
--- NOTE | 2023-04-16 11:06 | PM.OBPN.1 ---
Subjective - OB Subjective Patient comments: pain well controlled Narrative: 32yo [id number] POD#1 s/p PLTCS for failed IOL after PROM. Pt is doing well, pain well controlled. She hasn't ambulated yet, but her ellison was just removed. She denies dizziness/lightheadedness while lying in bed. Normal appetite. Date Patient Seen: 04/16/23 Time Patient Seen: 11:07 Exam Vital Signs (past 8 hours): Oxygen Delivery Method Room Air Narrative Exam Narrative: vitals reviewed in OBIX, within normal parameters Const General: comfortable and No acute distress Resp Effort & Inspection: normal respiratory effort and able to speak in complete sentences GI Palpation: soft and tender (appropriately ) Skin Other: Pfannenstiel skin incision clean/dry/intact with steri-strips in place Neuro Cognition: normal cognition Speech: speech normal Extrem General: normal to inspection, no pedal edema and no calf tenderness Psych Mood: congruent mood Affect: normal affect Objective Labs 04/16/23 09:35 Labs: Laboratory Results - last 24 hr 04/16/23 09:35 WBC 15.4 H RBC 3.10 L Hgb 9.1 L Hct 26.4 L MCV 85.3 MCH 29.3 MCHC 34.3 RDW 16.0 H Plt Count 235 Neut % (Auto) 87.9 H Lymph % (Auto) 7.9 L [place] % (Auto) 4.0 Eos % (Auto) 0.1 L Baso % (Auto) 0.1 Neut # (Auto) 10389 H Lymph # (Auto) 1200 [place] # (Auto) 600 Eos # (Auto) 0 Baso # (Auto) 0 Assessment & Plan Assessment and Plan (1) delivery, delivered, current hospitalization: Status: Acute (2) PROM (premature rupture of membranes): Status: Acute (3) Anemia affecting in third trimester: Status: Acute Plan day: 1 plan OB: routine postop care Comments: 32yo [id number] POD#1 s/p PLTCS, doing well. -encouraged ambulation today -f/u due to void -oral iron for anemia -anticipate d/c home tomorrow Time Spent With Patient Time: Total time spent is greater than 50% in coordination of care (as documented) at patient's floor/unit and/or counseling patient: Time with patient: 15-24 minutes
--- NOTE | 2023-04-16 15:13 | PM.OBPN.1 ---
Subjective - OB Subjective Interval history: Lyn is in bed and has just woken up from an approx. 2hr nap. Baby is [id number] with [place]. Feeling good, and is happy that her ellison and scd are out/off. Is planning to go to bathroom to try to void soon after . Exam Vital Signs (past 8 hours): BP: 110/71 HR: 65 bpm T: 98.6f temporal Oxygen Delivery Method Room Air Other: Fundus firm at U-1, midline. Lochia light Perineum intact with minimal edema Objective Labs 04/16/23 09:35 Labs: Laboratory Results - last 24 hr 04/16/23 09:35 WBC 15.4 H RBC 3.10 L Hgb 9.1 L Hct 26.4 L MCV 85.3 MCH 29.3 MCHC 34.3 RDW 16.0 H Plt Count 235 Neut % (Auto) 87.9 H Lymph % (Auto) 7.9 L [place] % (Auto) 4.0 Eos % (Auto) 0.1 L Baso % (Auto) 0.1 Neut # (Auto) 07017 H Lymph # (Auto) 1200 [place] # (Auto) 600 Eos # (Auto) 0 Baso # (Auto) 0 Assessment & Plan Assessment and Plan (1) delivery, delivered, current hospitalization: Status: Acute Assessment and plan: Day 0 PP following PCS. Plan to transfer to [facility] care @ 24hr or when stable. (2) PROM (premature rupture of membranes): Start date: 04/13/23 Status: Acute Assessment and plan: Will recommend changing iron supplementation (d/t current formulation not effectively increasing H/H). (3) Anemia affecting in third trimester: Status: Acute Plan day: 0 plan OB: routine postop care Comments: Supported and care with education and demonstration. Time Spent With Patient Time: Total time spent is greater than 50% in coordination of care (as documented) at patient's floor/unit and/or counseling patient: Time with patient: 25 - 35 minutes
[2023-04-16] MEDS: OXYCODONE IR 5 MG TABLET PO (19:50)
[2023-04-17] MEDS: IBUPROFEN 600 MG TABLET PO ×3 (00:50→12:40)
[2023-04-17] MEDS: OXYCODONE IR 5 MG TABLET PO (03:17)
[2023-04-17] MEDS: DOCUSATE 100 MG CAPSULE PO (09:05)
[2023-04-17] MEDS: ACETAMINOPHEN 325 MG TABLET 650 MG PO (09:05)
[2023-04-17] MEDS: PRENATAL VIT,CALC/IRON/FOLIC 1 TABLET 1 TAB PO (09:05)
[2023-04-17] MEDS: FERROUS SULFATE 325 MG TABLET PO (09:06)
--- NOTE | 2023-04-17 11:19 | PM.OBDS.1 ---
Discharge Providers Provider Date of admission: 04/14/23 12:48 Discharge Date: 04/17/23 Consults: 04/14/23 14:15 Consult to Anesthesiology Urgent Comment: Consulting Provider: Anesthesiologist Reason for consultation: Epidural Has provider been notified: No 04/16/23 00:13 Consult to Ticket Worker Routine Comment: Discharge provider: Jesika Bonilla CNM, ARNP Summary Hospital Course Date Patient Seen: 04/17/23 Time Patient Seen: 11:19 Diagnoses: Primary for failed induction of labor after PROM Hospital Course: Lyn was admitted for PROM, pitocin augmentation was initiated, not in labor after 24 hours of pitocin so was indicated. Normal post-op recovery. . EBL 700 mL. Peripartum Data Infant Delivery Method: Section 1: Gender: Male Disposition of : home Discharge Diagnosis (1) delivery, delivered, current hospitalization: Status: Acute Problem Details: Oxycodone 5 mg to use [facility]. (2) PROM (premature rupture of membranes): Status: Acute (3) Anemia affecting in third trimester: Status: Acute Problem Details: Recommending slow iron supplement for 6 weeks . Time Spent with Patient Time attestation: Total time spent providing and/or coordinating discharge services: Objective Labs 04/16/23 09:35 Exam Vital Signs (past 8 hours): Oxygen Delivery Method Room Air BP 106/69 HR 81 bpm RR 17/min Temp: 97.3 F, temporal Other: Fundus firm at U, midline. Lochia light Perineum intact with minimal edema Discharge Plan Discharge Plan Patient Disposition: Home Discharge orders & Medications Prescriptions: Continued prenat.vits,torsten,[id number] Tablet ferrous sulfate 325 mg (65 mg iron) Tablet 325 mg PO BID Follow up/Referrals: Jesika Bonilla CNM, ODIN [[employer] [facility] Chair] - 1 Week (2 week and 6 week visits scheduled; details via e-mail) Diet/Activity/Treatments Diet: Diet as Tolerated and Regular Diet comment: Increase fluid and fiber to promote healing and BMs Activity: Low-guillaume x 2 weeks. Do not lift anything heavier than for at least 4 weeks. Cold/Heat Therapy: As needed Skin/Wound/Dressing Care Skin care: Usual care. Ok to shower. Report to your healthcare provider any signs of infection, such as:: chills, fever, increased pain, unusual drainage and unusual redness Dressing: Plan for evaluation in 1 week. Visit Report/Discharge Packet Instructions: Depression, Hemorrhage Stand Alone Forms: Discharge: Care, Patient Portal/API, Stroke Signs & Symptoms Discharge Data Attending Provider: Jesika Bonilla Admit Date/Time: 04/14/23 12:48
== END 2023-04-17 15:00 | disposition home or self-care (01) | DRG 788 ==
PROVIDERS: Student in an Organized Health Care Education/Training Program; Admitting Provider Advanced Practice Midwife; Referring Provider Advanced Practice Midwife; Visit Provider Advanced Practice Midwife
PROC: 10D00Z1 Extraction of Products of Conception, Low, Open Approach (ICD-10-PCS; CPT 59514; principal; 2023-04-15 21:30)
DX: O42.12 Full-term premature rupture of membranes, onset of labor more than 24 hours following rupture (principal); O61.0 Failed medical induction of labor; Z3A.40 40 weeks gestation of pregnancy; Z37.0 Single live birth
CPT/HCPCS: 36415; 59050; 76815; 85025; 86850; 86900; 86901; G0378; G0379; J0690; J1885; J2270; J2405; J2590; J3410